=== PATIENT | female | born 1985 ===

== ENCOUNTER 2024-04-13 10:34 | Outpatient (CLI) | payer OTHER | END 2024-04-13 10:35 | disposition home or self-care (01) | LOC: PRENATAL 10:34 | PROVIDERS: ATTEND Obstetrics & Gynecology Maternal & Fetal Medicine | DX: O26.843 Uterine size-date discrepancy, third trimester (principal); O36.8130 Decreased fetal movements, third trimester, not applicable or unspecified; O09.523 Supervision of elderly multigravida, third trimester; O99.013 Anemia complicating pregnancy, third trimester; Z3A.33 33 weeks gestation of pregnancy ==

== ENCOUNTER 2024-05-26 06:13 | Inpatient (IN) | payer OTHER ==
[~2024-05-26] VITALS: Ht 167.6 cm; Wt 83.5 kg
[2024-05-26] VITALS (9 sets, daily range): BP systolic 108–129; BP diastolic 59–84
[2024-05-26] MEDS ORDERED: ZYRTEC10 M3 PO (07:01)
[2024-05-26] MEDS ORDERED: PROAIR RESPICL90 MCG IH (07:02)
[2024-05-26] MEDS ORDERED: SINGULAIR10 MG PO (07:02)
[2024-05-26] MEDS ORDERED: PRENATAL CAPLE1 EAC1 PO (07:02)
[2024-05-26] MEDS ORDERED: RINGERS SOLUTION,LACTATED 1,000 ML IV SCH (07:15)
[2024-05-26] MEDS ORDERED: ERYTHROMYCIN BASE OPHT 1GM EACH TUBE OP ONE ×2 (07:18→12:45)
[2024-05-26] MEDS ORDERED: OXYTOCIN 20 UNITS/1000ML RL PIGGYBAG IV ONE (07:19)
[2024-05-26] MEDS ORDERED: CHLORHEXIDINE GLUCONATE 120 ML BOTTLE TOP ONE (07:19)
[2024-05-26] MEDS ORDERED: LIDOCAINE HCL 1% 10ML VIAL ONE (07:19)
[2024-05-26] MEDS ORDERED: OXYTOCIN 20 UNITS/500ML RL PIGGYBAG IV ONE (07:20)
[2024-05-26] MEDS ORDERED: OXYTOCIN 500 ML IV SCH (07:30)
[2024-05-26 08:22] LABS: HEMATOCRIT 34.7 % (36.0-45.00); HEMOGLOBIN 11.7 g/dL (12.0-15.00); MEAN CELL VOLUME 81.3 fL (80.00-100.00); MEAN CORPUSCULAR HEMOGLOBIN 27.5 pg (27.00-32.0); MEAN CORPUSCULAR HGB CONC 33.9 g/dl (32.0-36.0); PLATELET COUNT 353 K/uL (150-450); RED BLOOD COUNT 4.27 M/uL (4.00-6.00); RED CELL DISTRIBUTION WIDTH 14.3 % (11.5-14.5)
[2024-05-26 08:41] LABS: URINE BACTERIA 289.5 uL (0.0-1933); URINE EPITHELIAL CELLS 6.1 uL (0.0-38.8); URINE WBC 2.3 uL (0.0-23.2)
[2024-05-26 08:51] LABS: URINE BILIRRUBIN NEGATIVE (NEGATIVE); URINE BLOOD TRACE; URINE GLUCOSE NEGATIVE (NEGATIVE); URINE KETONE NEGATIVE (NEGATIVE); URINE LEUKOCYTE NEGATIVE; URINE NITRATE NEGATIVE; URINE PROTEIN NEGATIVE (NEGATIVE); URINE UROBILINOGEN 0.2 E.U./dl
[2024-05-26 08:53] LABS: URINE APPEARANCE CLEAR; URINE COLOR YELLOW
[2024-05-26 08:57] LABS: INR 0.94; PARTIAL THROMBOPLASTIN TIME 27.6 SECONDS (22.0-34.0)
[2024-05-26 08:59] LABS: PROTHROMBIN TIME 10.3 SECONDS (9.0-11.5)
[2024-05-26] MEDS ORDERED: PROMETHAZINE HCL 25 MG/ML AMPUL ONE (09:03)
[2024-05-26 09:04] LABS: URINE RBC 0.9 uL (0.0-20.8)
[2024-05-26] MEDS ORDERED: PROMETHAZINE HCL 50 MG/ML AMPUL IV ONE (09:15)
[2024-05-26 09:17] LABS: ALBUMIN 2.8 gm/dL (3.4-5.0); BILIRUBIN TOTAL 0.37 mg/dL (0.3-1.2); CALCIUM 9.2 mg/dL (8.5-10.1); CREATININE SERUM 0.52 mg/dL (0.55-1.02); GFR 131.28; GLOBULINA 3.8 G/DL (2.4-3.5); POTASSIUM 4.22 mEq/L (3.5-5.1); TOTAL PROTEIN 6.6 gm/dL (6.4-8.2)
[2024-05-26] MEDS ORDERED: OXYTOCIN 1,000 ML IV SCH (12:00)
[2024-05-26] MEDS ORDERED: CHLORHEXIDINE GLUCONATE 120 ML BOTTLE TOP SCH (12:00)
[2024-05-26] MEDS ORDERED: ACETAMINOPHEN WITH CODEINE 1 UDTAB TABLET PO PRN (12:00)
[2024-05-26] MEDS ORDERED: LIDOCAINE HCL 1% 10ML VIAL IJ ONE (12:45)
[2024-05-26] MEDS ORDERED: MORPHINE SULFATE 4 MG/ML CARTRIDGE IV ONE (14:45)
[2024-05-27] VITALS: BP 123/74
[2024-05-27 07:57] VITALS: BP 91/60
[2024-05-27] MEDS ORDERED: HYDROCORTISONE 2.5% 30 GM TUBE RECTAL PRN (09:15)
[2024-05-27 13:24] VITALS: BP 108/67
[2024-05-27 18:24] VITALS: BP 114/74
[2024-05-28] VITALS: BP 106/68
[2024-05-28 07:51] VITALS: BP 115/60
== END 2024-05-28 15:59 | disposition home or self-care (01) | DRG 807 ==
LOC: LDR 06:13 → OB/GYN 13:06
PROVIDERS: ADMIT Obstetrics & Gynecology; ATTEND Obstetrics & Gynecology
PROC: 10E0XZZ Delivery of Products of Conception, External Approach (ICD-10-PCS; principal; 2024-05-26)
PROC: 0KQM0ZZ Repair Perineum Muscle, Open Approach (ICD-10-PCS; 2024-05-26)
PROC: 4A1HXCZ Monitoring of Products of Conception, Cardiac Rate, External Approach (ICD-10-PCS; 2024-05-26)
DX: O70.1 Second degree perineal laceration during delivery (principal); Z37.0 Single live birth; Z3A.39 39 weeks gestation of pregnancy; Z20.822 Contact with and (suspected) exposure to COVID-19